=== PATIENT | female | born 2000 | race Two or more races ===

== ENCOUNTER 2024-09-22 08:46 | Emergency (ER) | payer OTHER ==
[~2024-09-22] VITALS: Ht 157.5 cm; Wt 57.6 kg
== END 2024-09-22 11:14 | disposition home or self-care (01) ==
LOC: ER 08:48
DX: S09.8XXA Other specified injuries of head, initial encounter (principal); X83.8XXA Intentional self-harm by other specified means, initial encounter; Y93.89 Activity, other specified; Y92.89 Other specified places as the place of occurrence of the external cause; Y99.8 Other external cause status; Z71.89 Other specified counseling